=== PATIENT | male | born 1950 | race Caucasian/White ===

== ENCOUNTER 2024-03-28 13:36 | Emergency (ER) | payer OTHER ==
[2024-03-28 14:04] VITALS: RESP 16; TEMP 98.7; BMI 34.3
[2024-03-28] MEDS ORDERED: ACETAMINOPHEN INJECTION 100 ML IVPB ONE (15:13)
[2024-03-28] MEDS: ACETAMINOPHEN 1000 MG/100 ML BAG IVPB ONE (15:40)
[2024-03-28 15:48] LABS: BASO % 0.3 % (0-2.0); EOS % 0.7 % (0-4.5); HEMOGLOBIN 13.8 GM/dL (11.7-16.9); MCH 30.1 pg (25.7-33.7); MCHC 33.7 g/dl (32.0-35.9); MEAN CELL VOLUME 89.4 fl (80-96); MEAN PLT VOLUME 7.3 fl (7.5-11.1); MONO % 8.6 % (3.8-10.2); NEUT % 74.4 % (42.8-82.8); PLATELET COUNT 196 10^3/uL (134-434); RBC 4.59 M/mm3 (4.00-5.60); RDW 14.4 % (11.9-15.9); WHITE BLOOD COUNT 6.7 K/mm3 (4.0-10.0)
[2024-03-28 16:11] LABS: CALCIUM 9.1 mg/dL (8.5-10.1)
[2024-03-28 16:12] LABS: ALBUMIN 3.8 g/dl (3.4-5.0); BLOOD UREA NITROGEN 23.2 mg/dL (7-18)
[2024-03-28 16:17] LABS: BILIRUBIN,TOTAL 0.7 mg/dL (0.2-1); TOT PROT 8.1 g/dl (6.4-8.2)
[2024-03-28 16:41] LABS: CREATININE 1.3 mg/dL (0.55-1.3)
[2024-03-28] MEDS: SODIUM CHLORIDE 0.9% 500 ML INFUS.BAG IV ONE (16:59)
[2024-03-28 17:27] LABS: EPI CELLS 13 /uL (0-25.1); HYALINE CASTS 0 /uL (0-3.1); PH,URINE 5.5 (5.0-8.0); URINE APPEARANCE CLEAR; URINE BACTERIA 56 /uL (0-1359); URINE BILIRUBIN NEGATIVE (NEGATIVE); URINE COLOR YELLOW; URINE GLUCOSE (UA) 3+ (NEGATIVE); URINE KETONE 1+ (NEGATIVE); URINE LEUK ESTERASE NEGATIVE (NEGATIVE); URINE NITRITE NEGATIVE (NEGATIVE); URINE PROTEIN 1+ (NEGATIVE); URINE RBC 27 /uL (0-23.9); URINE WBC 47 /uL (0-25.8)
[2024-03-28 19:11] VITALS: BP 137/78; PULSE 86
== END 2024-03-28 20:48 | disposition home or self-care (01) ==
LOC: JER 13:36
PROC: 3E033NZ Introduction of Analgesics, Hypnotics, Sedatives into Peripheral Vein, Percutaneous Approach (ICD-10-PCS; principal; 2024-03-28)
DX: S22.31XA Fracture of one rib, right side, initial encounter for closed fracture (principal); S40.811A Abrasion of right upper arm, initial encounter; J94.8 Other specified pleural conditions; N28.9 Disorder of kidney and ureter, unspecified; R10.9 Unspecified abdominal pain; W01.0XXA Fall on same level from slipping, tripping and stumbling without subsequent striking against object, initial encounter
CPT/HCPCS: 36415; 70450-TC; 71045-TC-FY; 71260-TC; 72125-TC; 72170-TC-FY; 73030-TC-RT-FY; 74177-TC; 80053; 81003; 82550; 82553; 84484; 85025; 87086; 93005; 93010; 96374; 99285-25; J0131; Q9967